=== PATIENT | female | born 1990 | race Caucasian/White ===

== ENCOUNTER 2021-06-15 03:01 | Emergency (ER) | payer OTHER ==
[~2021-06-15] VITALS: Ht 162.6 cm; Wt 131.5 kg
[2021-06-15] MEDS ORDERED: METHYLPREDNISOLONE SOD SUCC 125 MG/2ML VIAL ONE (03:33)
[2021-06-15] MEDS ORDERED: EPINEPHRINE HCL 1:1000 1ML 1 MG/ML AMP ONE (03:33)
[2021-06-15] MEDS ORDERED: SODIUM CHLORIDE 0.9% 1000ML 1,000 ML ONE (03:34)
[2021-06-15] MEDS ORDERED: ALBUTEROL SULF 0.083% NEB SOLN 3 ML NEB ONE ×2 (03:34)
[2021-06-15] MEDS ORDERED: DIPHENHYDRAMINE HCL INJ 50 MG/ML VIAL ONE (03:34)
[2021-06-15] MEDS ORDERED: FAMOTIDINE 20 MG/2 ML VIAL IV ONE (03:35)
[2021-06-15] MEDS ORDERED: ONDANSETRON HCL INJ 2MG/ML 2ML 2 MG/ML VIAL ONE (03:56)
[2021-06-15] MEDS ORDERED: FAMOTIDINE 20 MG/2 ML VIAL IV STA (05:09)
[2021-06-15] MEDS ORDERED: ALBUTEROL SULF 0.083% NEB SOLN 3 ML NEB NEB STA (05:09)
[2021-06-15] MEDS ORDERED: ONDANSETRON HCL INJ 2MG/ML 2ML 2 MG/ML VIAL IV STA (05:09)
[2021-06-15] MEDS ORDERED: DIPHENHYDRAMINE HCL INJ 50 MG/ML VIAL IV ONE (05:15)
[2021-06-15] MEDS ORDERED: METHYLPREDNISOLONE SOD SUCC 125 MG/2ML VIAL IV ONE (05:15)
[2021-06-15] MEDS ORDERED: SODIUM CHLORIDE 0.9% 1000ML 1,000 ML IV SCH ×2 (05:15)
[2021-06-15] MEDS ORDERED: EPINEPHRINE HCL 1:1000 1ML 1 MG/ML AMP INJ ONE (05:15)
[2021-06-15] MEDS ORDERED: EPINEPHRIN0.3 MG/0.3 IM (06:42)
[2021-06-15] MEDS ORDERED: PREDNISONE20 MG PO (06:44)
[2021-06-15] MEDS ORDERED: FAMOTIDINE40 MG PO (06:46)
[2021-06-15 07:03] VITALS: BP 109/58
== END 2021-06-15 07:03 | disposition home or self-care (01) ==
LOC: FSED 03:30
DX: T78.2XXA Anaphylactic shock, unspecified, initial encounter (principal); R74.8 Abnormal levels of other serum enzymes; F41.9 Anxiety disorder, unspecified; G47.00 Insomnia, unspecified; F32.A Depression, unspecified
CPT/HCPCS: 80053; 81003; 81025; 85025; 96374; 96375; 96376; 99283; J0171; J1200; J2405; J2930; J7030